=== PATIENT | male | born 1955 | race Caucasian/White ===

== ENCOUNTER 2018-11-01 11:36 | Inpatient (IN) | payer OTHER ==
--- NOTE | 2018-11-01 12:03 | ED Physician Documentation ---
General Adult - HISTORIAN Historian: patient - HPI Stated Complaint: abd pain Chief Complaint: General Adult Onset: hours Timing: still present Severity: moderate Further Comments: yes (Pt is a 63 yo with abd pain. Pt was traveling from [place] to [place], when the pain became concerning and he came to ER. Pt has hx kidney stone and also hx pancreatitis. Pt states that 4 yrs ago he had an episode of acute pancreatitis and was seen at an ER in [facility]. Four weeks later he had another episode and was hospitalized for 10 days. Pt reports that some sort of mass was seen at that time. Pt has hx DM, Hypothyroidism, Pancreatitis, kidney stone.) - ROS CONST: no problems EYES/ENT: none CVS/RESP: none GI/: abdominal pain, vomiting, nausea MS/SKIN/LYMPH: none - PAST HX Past History: other (DM, Hypothyroidism, Kidney stone, pancreatitis) Allergies/Adverse Reactions: Allergies Allergy/AdvReac Type Severity Reaction Status Date / Time No Known Allergies Allergy Verified 11/01/18 16:04 Home Medications: Ambulatory Orders Medication Instructions Recorded Glimepiride [Amaryl] 11/01/18 Levothyroxine Sodium 11/01/18 Metformin HCl 11/01/18 - SOCIAL HX Smoking History: non-smoker - FAMILY HX Family History: No - REVIEWED ASSESSMENTS Nursing Assessment Reviewed: Yes Vitals Reviewed: Yes Progress - Progress Progress: NS 1 L IVF Zofran 4 mg IV Morphine 2 mg IV x 2 [address]om[address] abd/pelvis with IV contrast: A 7.2 x 8 cm thick walled cystic pancreatic body mass or pseudocyst is observed. This is associated with peripheral pancreatic atrophy and ductal dilatation. The pancreatic head and uncinate process exhibit normal morphology. Left upper quadrant collateral veins are present. The liver, spleen, adrenals, and lung bases are unremarkable. The cystic lesion exerts slight mass effect upon adjacent veins. A 5 mm proximal left ureteral stone produces at least mild to moderate hydronephrosis, difficult to evaluate due to the presence of multiple peripelvic cysts. Multiple small left renal stones are present. Right renal peripelvic c ysts are noted. Bowel loops exhibit normal caliber and wall thickness including a normal appendix. Aortic atherosclerosis and mild lumbar spondylosis are observed. Pelvic sections reveal unremarkable prostate, seminal vesicles, urinary bladder, and bowel loops. The caudal pelvis is not imaged. Impression: 1. A 5 mm proximal left ureteral stone with at least mild to potentially moderate obstructive uropathy. Evaluation of the collecting system is compromised by the presence of peripelvic renal cysts. 2. Multiple left renal stones. 3. Probable pancreatic pseudocyst with peripheral pancreatic ductal dilatation. Cystic pancreatic neoplasia cannot be excluded. Recommend correlation with clinical history for previous pancreatitis. If this cannot be established with certainty and there are no prior imaging exams, then MRI is indicated. 4. Normal appendix. Admit to Dr. Painter, kidney stone, acute/chronic pancreatitis. General Adult Physical Exam - PHYSICAL EXAM GENERAL APPEARANCE: moderate distress EENT: pharynx normal NECK: normal inspection, supple RESPIRATORY: no resp distress, chest non-tender, breath sounds normal CVS: reg rate & rhythm, heart sounds normal ABDOMEN: soft, no organomegaly, tenderness (LLQ), increased BS BACK: normal inspection, no CVA tenderness SKIN: warm/dry, normal color EXTREMITIES: non-tender, normal range of motion, no evidence of injury NEURO: oriented X3, motor nml, sensation nml Discharge Clincal Impression: acute/chronic pancreatitis, Kidney stone Referrals: Primary Doctor,No [Primary Care Provider] - 2 Days Condition: Stable Disposition: ADMITTED INPATIENT Decision to Admit: [id number] Decision Time: 19:12
[2018-11-01] MEDS ORDERED: 0.9 % SODIUM CHLORIDE 1,000 ML IV ONE ×2 (12:14→18:04)
[2018-11-01] MEDS ORDERED: ONDANSETRON HCL/PF 4 MG/ 2ML VIAL IVP ONE ×2 (12:15→14:45)
[2018-11-01 12:55] LABS: BASOPHILS % 0.3 (0.0-1.5); MONOCYTES % 3.4 % (0.0-11.0); NEUTROPHILS # 5.9 # k/uL (1.4-7.7)
[2018-11-01 13:09] LABS: eGFR (Non-African) > 60
[2018-11-01] MEDS ORDERED: HYDROmorphone HCL/PF 1 MG/ML VIAL IVP ONE (13:22)
[2018-11-01] MEDS ORDERED: KETOROLAC TROMETHAMINE 30 MG/1ML VIAL IVP ONE (13:33)
[2018-11-01] MEDS ORDERED: MORPHINE SULFATE 2 MG/ML VIAL IVP ONE ×2 (13:43→15:10)
[2018-11-01] MEDS ORDERED: MORPHINE SULFATE 10 MG/ML VIAL ONE (14:01)
--- NOTE | 2018-11-01 16:45 | Diagnostic Imaging Report ---
ADELINE OSBORN [facility] [address] [facility] [address] [place] [address]. [id number] Report Submission Date: Nov 01, 2018 4:32:35 PM DEVELOPMENT ASSISTANT Patient Study Name: ANISHA RESENDIZ Date: Nov 01, 2018 3:17:44 PM DEVELOPMENT ASSISTANT Modality Type: CT\SR Gender: M Description: CT ABD PELVIS W/ CON : 51 Institution: [facility] Physician: ADELINE OSBORN Computed tomography abdomen pelvis with contrast History: Nausea, vomiting, and history of kidney stones Findings: Transverse abdomen and pelvis sections are obtained after 90 mL intravenous Omnipaque 350. A 7.2 x 8 cm thick walled cystic pancreatic body mass or pseudocyst is observed. This is associated with peripheral pancreatic atrophy and ductal dilatation. The pancreatic head and uncinate process exhibit normal morphology. Left upper quadrant collateral veins are present. The liver, spleen, adrenals, and lung bases are unremarkable. The cystic lesion exerts slight mass effect upon adjacent veins. A 5 mm proximal left ureteral stone produces at least mild to moderate hydronephrosis, difficult to evaluate due to the presence of multiple peripelvic cysts. Multiple small left renal stones are present. Right renal peripelvic cysts are noted. Bowel loops exhibit normal caliber and wall thickness including a normal appendix. Aortic atherosclerosis and mild lumbar spondylosis are observed. Pelvic sections reveal unremarkable prostate, seminal vesicles, urinary bladder, and bowel loops. The caudal pelvis is not imaged. Impression: 1. 5 mm proximal left ureteral stone with at least mild to potentially moderate obstructive uropathy. Evaluation of the collecting system is compromised by the presence of peripelvic renal cysts. 2. Multiple left renal stones. 3. Probable pancreatic pseudocyst with peripheral pancreatic ductal dilatation. Cystic pancreatic neoplasia cannot be excluded. Recommend correlation with clinical history for previous pancreatitis. If this cannot be established with certainty and there are no prior imaging exams, then MRI is indicated. 4. Normal appendix. Electronically signed on Nov 01, 2018 4:32:35 PM DEVELOPMENT ASSISTANT by: Manish HURT
[2018-11-01] MEDS ORDERED: TAMSULOSIN HCL 0.4 MG CAP.ER.24H PO ONE (17:59)
[2018-11-01] MEDS ORDERED: ONDANSETRON HCL/PF 4 MG/ 2ML VIAL IVP PRN (19:28)
[2018-11-01] MEDS ORDERED: MORPHINE SULFATE 2 MG/ML VIAL IVP PRN (19:28)
[2018-11-01 21:18] LABS: APPEARANCE,URINE CLOUDY (CLEAR); COLOR,URINE BROWN (YELLOW)
[2018-11-01 21:19] LABS: OCCULT BLOOD,URINE 3+ (NEGATIVE); PH URINE 5.5 (5.0 - 8.0); UROBILINOGEN URINE 0.2 Eu (0.2-1.0)
[2018-11-01] MEDS ORDERED: DEXTROSE 5 %-0.45 % SOD CHLORD 1,000 ML IV ONE (22:15)
[2018-11-01] MEDS: DEXTROSE 5 %-0.45 % SOD CHLORD 1,000 ML IV SCH (22:38)
[2018-11-01 23:10] VITALS: BMI 29.7
[2018-11-02] MEDS: LEVOTHYROXINE SODIUM 100 MCG TABLET PO SCH ×2 (06:23→10:06)
[2018-11-02 07:56] LABS: eGFR (Non-African) 55
--- NOTE | 2018-11-02 08:22 | History and Physical Report ---
History of Present Illnes - History of Present Illness Reason for Visit: stomach pain History of Present Illness: Patient was on his way from [facility] to [place] where he will be working over the next 4-18 months. He started having L abdominal pain that got progressively worse. Has a h/o pancreatitis about 4 years ago. Has seen several GI specialists. KNows he has a pseuodcyst. Had an EUS last year. He also has a h/o kidney stones. Passed one several years ago - told at that time he had "100's of stones in each kidney" Stone was calcium oxalate. He has been doing a lot of citrate since then. CT in ER showed a 5 mm L ureteral proximal stone with moderate hydronephrosis. It also showed a probably pseudocyst and early pancreatitis. Lipase was mildly elevated also. He will be admitted to Acute for treatment. - Past Medical History Gastrointestinal: Other (Pancreatitis) Renal/: Other (KIdney stones) Endocrine: Diabetes, Hypothyroidism - Past Surgical History Past Surgical History: Other (hydrocele repair) - Past Family History Mother Family History: - Past Social History Smoke: No Occupation: senior c web developer Alcohol: None Drugs: None Lives: With Family - Health Maintenance Health Maintenance: Influenza Vaccine, Pneumococcal Vaccine, Colonoscopy Influenza Vaccine: Current for this Influenza Season Pneumonia Vaccine: Yes Resuscitation Status: Resusciation Status Resuscitation Status Full Code Review of Systems - Review of Systems Constitutional: negative: Fever, Weakness Eyes: negative: pain ENT: negative: Nose Discharge Respiratory: negative: Cough, Shortness of Breath Cardiovascular: negative: Chest Pain Gastrointestinal: Vomiting (once), Abdominal Pain. negative: Nausea, Diarrhea, Constipation, Melena Genitourinary: negative: Dysuria, Frequency, Incontinence Musculoskeletal: negative: Neck Pain Skin: negative: Rash Neurological: negative: Weakness - Medications/Allergies Allergies/Adverse Reactions: Allergies Allergy/AdvReac Type Severity Reaction Status Date / Time No Known Allergies Allergy Verified 11/01/18 16:04 Home Medications: Home Medications Glimepiride [Amaryl] 2 mg PO D 11/01/18 Levothyroxine Sodium 112 mcg PO D 11/01/18 Metformin HCl 1,000 mg PO D 11/01/18 Current Inpatient Medications: Current Inpatient Medications DEXTROSE 5 %-0.45 % SOD CHLORD (D51/2ns) 1,000 mls @ 100 mls/hr IV Q10H DEBORAH Last Admin: 11/01/18 22:38 Dose: 100 mls/hr Levothyroxine Sodium (Synthroid) 112 mcg PO 0700 [facility] Last Admin: 11/02/18 06:23 Dose: Not Given Metformin HCl (Glucophage) 1,[place] [address] [facility] Morphine Sulfate (Morphine Sulfate) 2 mg IVP Q4 PRN PRN Reason: Severe Pain Ondansetron HCl (Zofran 4 Mg/2 Ml) 4 mg IVP Q6H PRN PRN Reason: Nausea / Vomiting Exam - Exam Vital Signs: Vital Signs (72 hours) 11/01/18 11/01/18 11/01/18 11:42 18:00 20:00 Temperature 98.2 F 98.6 F Pulse Rate [ 78 70 76 Left Pulse ox] Respiratory 16 16 18 Rate Blood Pressure 148/95 156/98 159/99 [Left Arm] O2 Sat by Pulse 98 97 95 Oximetry 11/01/18 11/02/18 11/02/18 20:12 00:12 02:00 Temperature 97.8 F 99.1 F Pulse Rate [ 72 72 71 Left Pulse ox] Respiratory 20 20 20 Rate Blood Pressure 148/91 143/75 [Left Arm] O2 Sat by Pulse 97 98 Oximetry 11/02/18 06:00 Temperature 98.7 F Pulse Rate [ 76 Left Pulse ox] Respiratory 20 Rate Blood Pressure 132/83 [Left Arm] O2 Sat by Pulse 96 Oximetry General: Alert, Oriented to Person, Oriented to Place, Oriented to Time, Cooperative, No acute distress HEENT: Atraumatic, PERRLA, EOMI, Mouth Mucous membr. moist/Dugger Neck: Normal Range of Motion Lungs: Clear to auscultation, Normal air movement, Speaks full Sentences Cardiovascular: Regular rate Abdomen: Normal bowel sounds, Soft. No: No tenderness (mild. No rebound or guarding.) Integumentary: Normal Extremities: No edema Neurological: Normal gait, Normal speech, Strength Equal Bilat, Cranial nerves 3-12 NL Psych/Mental Status: Mental status NL, Mood NL - Laboratory Results Laboratory Results: Laboratory Results 11/01/18 11/01/18 11/01/18 12:10 Unknown Unknown WBC 7.20 RBC 5.16 Hgb 14.4 Hct 45.1 MCV 87.0 MCH 28.0 MCHC 32.1 RDW 14.4 H Plt Count 224 Neut % (Auto) 82.2 H Lymph % (Auto) 13.1 L Bremer % (Auto) 3.4 Eos % (Auto) 1.0 Baso % (Auto) 0.3 Neut # (Auto) 5.9 Lymph # (Auto) 0.9 Bremer # (Auto) 0.2 Eos # (Auto) 0.1 Baso # (Auto) 0.0 Sodium 140 Potassium 4.4 Chloride 106 Carbon Dioxide 27 BUN 24 H Creatinine 1.17 Estimated Creat Clear 90 Est GFR ( Amer) > 60 Est GFR (Non-Af Amer) > 60 Glucose 134 H Calcium 8.9 Total Bilirubin 0.5 AST 31 ALT 33 Alkaline Phosphatase 68 Creatine Kinase 259 H CK-MB (CK-2) Total Protein 6.9 Albumin 4.5 Lipase Urine Color Brown Urine Appearance Cloudy Urine pH 5.5 Ur Specific [place] >=1.030 H Urine Protein 2+ H Urine Ketones 1+ H Urine Occult Blood 3+ H Urine Nitrite Negative Urine Bilirubin Negative Urine Urobilinogen 0.2 Ur Leukocyte Esterase Negative Urine Glucose Negative 11/01/18 11/01/18 11/02/18 Unknown Unknown 05:50 WBC RBC Hgb Hct MCV MCH MCHC RDW Plt Count Neut % (Auto) Lymph % (Auto) Bremer % (Auto) Eos % (Auto) Baso % (Auto) Neut # (Auto) Lymph # (Auto) Bremer # (Auto) Eos # (Auto) Baso # (Auto) Sodium 138 Potassium 3.9 Chloride 104 Carbon Dioxide 25 BUN 19 Creatinine 1.38 H Estimated Creat Clear 76 Est GFR ( Amer) > 60 Est GFR (Non-Af Amer) 55 L Glucose 150 H Calcium 8.1 L Total Bilirubin 0.6 AST 28 ALT 30 Alkaline Phosphatase 65 Creatine Kinase CK-MB (CK-2) 4.3 Total Protein 6.2 L Albumin 4.0 Lipase 399 H 280 Urine Color Urine Appearance Urine pH Ur Specific [place] Urine Protein Urine Ketones Urine Occult Blood Urine Nitrite Urine Bilirubin Urine Urobilinogen Ur Leukocyte Esterase Urine Glucose Assessment/Plan - Assessment/Plan (1) Pancreatitis Status: Acute Current Visit: Yes Qualifiers: Chronicity: acute Pancreatitis type: unspecified pancreatitis type Acute pancreatitis complication: unspecified Qualified Code(s): K85.90 - Acute pancreatitis without necrosis or infection, unspecified Plan: Will admit with IVF and IV pain medication. NPO at this time. Patient understands radiology said he needed an MRI at some point. However with the ex tensive work up with GI already, I think he should follow up with them soon. (2) Adult onset hypothyroidism Status: Chronic Current Visit: No (3) Diabetes Status: Chronic Current Visit: No Qualifiers: Diabetes mellitus type: type 2 Diabetes mellitus [facility] insulin use: without joint terminal attack controller use Diabetes mellitus complication status: without complication Qualified Code(s): E11.9 - Type 2 diabetes mellitus without complications Plan: Patient on D5NS. Watch BS. (4) Kidney stone Status: Acute Current Visit: Yes Plan: Flomax given in ER. Watch Cr. IVF and pain management. VTE Assessment - RISK FACTOR SCORE VTE RISK FACTOR SCORES: AGE OVER 60 YEARS - RISK VTE LOW RISK: SCORE OF 1 OR LESS (RISK PROXIMAL DVT 0.4%) NO PROPHYLAXIS NEEDED
[2018-11-02] MEDS ORDERED: 0.9 % SODIUM CHLORIDE 1,000 ML IV ONE ×2 (08:24→08:31)
[2018-11-02] MEDS: DEXTROSE 5 %-0.45 % SOD CHLORD 1,000 ML IV SCH (08:30)
[2018-11-02] MEDS ORDERED: ACETAMINOPHEN 325 MG TABLET PO PRN (09:38)
[2018-11-02] MEDS ORDERED: HYDROcodone /APAP 5/325 1 EACH TABLET PO PRN (09:38)
[2018-11-02] MEDS ORDERED: LEVOTHYROXINE SODIUM 25 MCG TABLET ONE (10:07)
[2018-11-02] MEDS ORDERED: LEVOTHYROXINE SODIUM 100 MCG TABLET ONE (10:08)
--- NOTE | 2018-11-02 13:12 | Discharge Summary ---
Discharge Summary - Discharge Sumary History of Present Illness: Patient was on his way from [facility] to [place] where he will be working over the next 4-18 months. He started having L abdominal pain that got progressively worse. Has a h/o pancreatitis about 4 years ago. Has seen several GI specialists. KNows he has a pseuodcyst. Had an EUS last year. He also has a h/o kidney stones. Passed one several years ago - told at that time he had "100's of stones in each kidney" Stone was calcium oxalate. He has been doing a lot of citrate since then. CT in ER showed a 5 mm L ureteral proximal stone with moderate hydronephrosis. It also showed a probably pseudocyst and early pancreatitis. Lipase was mildly elevated also. He will be admitted to Acute for treatment. Condition at Discharge: Stable Home Medications: Ambulatory Orders Medication Instructions Recorded Glimepiride [Amaryl] 2 mg PO D 11/01/18 Levothyroxine Sodium 112 mcg PO D 11/01/18 Metformin HCl 1,000 mg PO D 11/01/18 HYDROcodone /APAP 5/325 [[place] 1 each PO Q4 #30 tablet 11/02/18 5/325] Tamsulosin HCl [Flomax] 0.4 mg PO [id number] #30 cap.er.24h 11/02/18 Consultations this Visit: None Procedures this Visit: None Allergies/Adverse Reactions: Allergies Allergy/AdvReac Type Severity Reaction Status Date / Time No Known Allergies Allergy Verified 11/01/18 16:04 Patient Problems: Current Active Problems Problem Status Onset Kidney stone Acute Pancreatitis Acute Discharge Summary: Patient did very well during hospitalization. Pain moved into bladder and disappeared. Advanced diet. Lipase returned to normal. Ambulated well in the halls. Discharged in good condition.
[2018-11-02 14:21] VITALS: BP 153/91
[2018-11-02] MEDS ORDERED: TAMSULOSIN HCL 0.4 MG CAP.ER.24H PO SCH (18:00)
[2018-11-03 11:12] LABS: MEAN CORPUSCULAR HEMOGLOBIN 29.1 pg (28.0-34.0); MONOCYTES % 7.9 % (0.0-11.0)
[2018-11-03 11:13] LABS: BASOPHILS % 0.3 (0.0-1.5); NEUTROPHILS # 5.2 # k/uL (1.4-7.7)
== END 2018-11-02 14:35 | disposition home or self-care (01) | DRG 694 ==
LOC: ED 11:36 → SOUTH 19:54
PROVIDERS: ADMIT Family Medicine; ATTEND Family Medicine
DX: N20.0 Calculus of kidney (principal); K86.1 Other chronic pancreatitis; Z87.442 Personal history of urinary calculi
CPT/HCPCS: 74177; 80053; 81002; 82550; 82553; 83690; 85025; 96374; 96375; 96376; 99285; J2270; J2405; J7030; Q9967; 99222; 99238; S1016; S5010